=== PATIENT | female | born 1970 | race Caucasian/White ===

== ENCOUNTER 2024-04-12 22:52 | Inpatient (IN) | payer MEDICARE, OTHER, SELFPAY ==
[2024-04-12 15:09] VITALS: BP 104/73
--- NOTE | 2024-04-12 15:23 | ED.GENMED ---
ED Provider Triage
<Marbella Stevens [employer] - Last Filed: 04/12/24 15:29>
-
Patient seen by provider in Triage?: Seen in Triage
53-year-old female with history of Crohn's, bowel resections, ileostomy, CKD stage IV, has had sepsis multiple times, had a PE with COVID last year, DVT left upper arm at same time, she is not anticoagulated.
Admitted [facility] in December 2023 for sepsis, admitted to [place] on 04/03, discharged 04/07 for kidney failure, hypokalemia, hypomagnesemia.
Patient is here today for abdominal pain, poor appetite, nausea and vomiting, last emesis was on the way here today. Has had fevers, states her temperature max was 102 yesterday.
History of Present Illness
<Marbella Stevens NP - Last Filed: 04/12/24 15:29>
General
Chief Complaint: Weakness
Time Seen by Provider: 04/12/24 19:24
<Manoj Sheffield MD - Last Filed: 04/12/24 21:32>
General
Source: patient and records
Exam Limitations: none
Nursing documentation reviewed up to this point in time: agreed with
History of Present Illness
History of Present Illness:
53-year-old female with a past medical history of Crohn's disease status post total colectomy with ileostomy, chronic kidney disease who presents to the emergency department for evaluation of nausea, vomiting, high output from ostomy. Patient
reports that she has been COVID-positive since 04/03/24. She says that her primary symptoms have been and significant GI symptoms�she describes nausea, nasal congestion, headache repeated nonbloody nonbilious emesis and watery output from her
ileostomy. She says that she did initially present [facility] and was admitted for 4 days due to acute kidney injury and hypokalemia; she says that she was discharged 04/07/2024. Since returning home she has continued with vomiting and high
output from ostomy and so she returned here to the emergency room today. She does have some upper abdominal discomfort. She has had fever/chills although not over the past day or 2. She denies any other complaints.
Past History
<Marbella Stevens NP - Last Filed: 04/12/24 15:29>
Past History
ED Past Medical History: Renal failure, Psychiatric (Anxiety, Depression), Other (Crohn's disease, chronic abdominal pain, chronic pain syndrome/narcotic dependent, kidney stones. Colitis, Pancreatitis, Ileostomy,Anemia, ), Other (Small bowel
obstructions, osteopenia, ) and Other (fistula repair late Feb 2015)
ED Past Surgical History: Bowel resection (Colon resection with J. pouch formation 2005, abdominal fistula repair. Ileostomy 08/11)
Social History
Tobacco: Non-smoker
Alcohol: None
Personal: Single
Living: with family
Employment: Not employed
Family History
Family History: Other (Colitis)
Review of Systems
<Manoj Sheffield MD - Last Filed: 04/12/24 21:32>
Review of Systems
All Other Systems: ROS reviewed and negative except as documented in HPI and ROS
Constitutional: Reports fever and chills
EENT: Reports other (Nasal congestion); Denies sore throat
Respiratory: Denies cough
Cardiac: Denies chest pain
ABD/GI: Reports abdominal pain, nausea, vomiting and diarrhea (High output from ostomy)
: Reports dark urine; Denies flank pain
Musculoskeletal: Denies neck pain or back pain
Neurological: Reports headache
Phy Exam
<Manoj Sheffield MD - Last Filed: 04/12/24 21:32>
Physical Exam
Physical Exam:
General: Awake, alert, oriented x3; no acute distress
Head: Normocephalic, atraumatic
Eyes: Conjunctiva normal, sclera anicteric
Throat: Airway intact, very dry mucous membranes
Neck: Trachea midline, supple without meningismus
Lungs: Clear to auscultation bilaterally, no wheezing, rales, rhonchi
Heart: Tachycardia with regular rhythm, no murmurs, gallops, or rubs
Abd: Soft, non distended, minimally tender in the epigastrium; ostomy in place bag filled with essentially bile/green liquid
Neuro: No gross deficits
Skin: Poor skin turgor
Extremities: Warm and well-perfused
Scores
<Manoj Sheffield MD - Last Filed: 04/12/24 21:32>
Heart Failure Risk
Heart Failure Risk Score: Not Applicable
Heart Score for Chest Pain Patients
STEMI patient?: Not applicable
Withdrawal Assessment of Alcohol
Withdrawal Assessment Completed?: Not applicable
Course
<Marbella Stevens NP - Last Filed: 04/12/24 15:29>
Orders/Labs/Results
Orders:
Orders
04/12/24 18:24
Complete Blood Count/With Diff Urgent
04/12/24 18:47
Ondansetron Injectable [Zofran] 4 mg .ROUTE .STK-MED ONE
04/12/24 18:53
Ondansetron Injectable [Zofran] 4 mg IV NOW STA
04/12/24 19:28
CR Chest Portable - 1 View Urgent
Comment:
Reason For Exam: sob, covid+
Reason Study Needs to be Portable: Unable to Transport
04/12/24 19:48
0.9% Sodium Chloride 1000 ml [Nss] 1,000 ml IV BOLUS
Morphine Sulfate 2 mg IV NOW STA
04/12/24 19:56
Comprehensive Metabolic Panel Routine
Lipase Routine
Magnesium Urgent
04/12/24 20:21
Magnesium Sulfate 2 Gram/50 ml [Magnesium Sulfate] 2 gram in 50 ml IV NOW
US Abdomen Complete/Upper Urgent
Comment:
Reason For Exam: abd pain, abnormal LFTs
04/12/24 20:22
0.9% Sodium Chloride 500 ml [Nss] 500 ml IV BOLUS
Abnormal Lab Results
04/12/24 04/12/24
18:24 19:56
WBC 17.8 H 10^3/uL
(4.8-10.8)
RBC 5.61 H 10^6/uL
(4.20-5.40)
Hgb 16.6 H g/dL
(12.0-16.0)
Hct 48.2 H %
(37.0-47.0)
Plt Count 497 H 10^3/uL
(130-400)
MPV 10.9 H fL
(7.4-10.4)
Abs Immat Gran (auto) 0.3 H 10^3/uL
(0-0.05)
Absolute Neuts (auto) 14.9 H 10^3/uL
(1.4-6.5)
Absolute Monos (auto) 1.0 H 10^3/uL
(0.1-0.6)
Immature Gran % 1.7 H %
(0-0.5)
Neutrophils % 83.6 H %
(42.2-75.2)
Lymphocytes % 8.7 L %
(20.5-51.1)
Carbon Dioxide 14 L* mmol/L
(22-30)
BUN 58 H mg/dl
(7-17)
Creatinine 3.3 H mg/dL
(0.6-1.0)
Glucose 116 H mg/dl
(70-99)
Magnesium 1.5 L mg/dl
(1.6-2.3)
Total Bilirubin 1.4 H mg/dl
(0.2-1.3)
AST 65 H U/L
(14-36)
ALT 216 H U/L
(0-35)
Alkaline Phosphatase 152 H U/L
(38-126)
Total Protein 8.7 H g/dl
(6.3-8.2)
Albumin 5.1 H g/dl
(3.5-5.0)
Lipase 594 H U/L
(23-300)
04/12/24 18:24
04/12/24 19:56
Vital Signs
Initial and Last Documented VS:
Initial Vital Signs
Pulse Resp BP Pulse Ox
110 18 104/73 98
04/12/24 15:09 04/12/24 15:09 04/12/24 15:09 04/12/24 15:09
Last Documented Vital Signs
Temp Pulse Resp BP Pulse Ox
36.8 C 114 23 134/97 98
04/12/24 15:32 04/12/24 19:45 04/12/24 19:45 04/12/24 19:42 04/12/24 19:45
<Manoj Sheffield MD - Last Filed: 04/12/24 21:32>
Orders/Labs/Results
Orders:
Orders
04/12/24 18:24
Complete Blood Count/With Diff Urgent
04/12/24 18:47
Ondansetron Injectable [Zofran] 4 mg .ROUTE .STK-MED ONE
04/12/24 18:53
Ondansetron Injectable [Zofran] 4 mg IV NOW STA
04/12/24 19:28
CR Chest Portable - 1 View Urgent
Comment:
Reason For Exam: sob, covid+
Reason Study Needs to be Portable: Unable to Transport
04/12/24 19:48
0.9% Sodium Chloride 1000 ml [Nss] 1,000 ml IV BOLUS
Morphine Sulfate 2 mg IV NOW STA
04/12/24 19:56
Comprehensive Metabolic Panel Routine
Lipase Routine
Magnesium Urgent
04/12/24 20:21
Magnesium Sulfate 2 Gram/50 ml [Magnesium Sulfate] 2 gram in 50 ml IV NOW
US Abdomen Complete/Upper Urgent
Comment:
Reason For Exam: abd pain, abnormal LFTs
04/12/24 20:22
0.9% Sodium Chloride 500 ml [Nss] 500 ml IV BOLUS
Abnormal Lab Results
04/12/24 04/12/24
18:24 19:56
WBC 17.8 H 10^3/uL
(4.8-10.8)
RBC 5.61 H 10^6/uL
(4.20-5.40)
Hgb 16.6 H g/dL
(12.0-16.0)
Hct 48.2 H %
(37.0-47.0)
Plt Count 497 H 10^3/uL
(130-400)
MPV 10.9 H fL
(7.4-10.4)
Abs Immat Gran (auto) 0.3 H 10^3/uL
(0-0.05)
Absolute Neuts (auto) 14.9 H 10^3/uL
(1.4-6.5)
Absolute Monos (auto) 1.0 H 10^3/uL
(0.1-0.6)
Immature Gran % 1.7 H %
(0-0.5)
Neutrophils % 83.6 H %
(42.2-75.2)
Lymphocytes % 8.7 L %
(20.5-51.1)
Carbon Dioxide 14 L* mmol/L
(22-30)
BUN 58 H mg/dl
(7-17)
Creatinine 3.3 H mg/dL
(0.6-1.0)
Glucose 116 H mg/dl
(70-99)
Magnesium 1.5 L mg/dl
(1.6-2.3)
Total Bilirubin 1.4 H mg/dl
(0.2-1.3)
AST 65 H U/L
(14-36)
ALT 216 H U/L
(0-35)
Alkaline Phosphatase 152 H U/L
(38-126)
Total Protein 8.7 H g/dl
(6.3-8.2)
Albumin 5.1 H g/dl
(3.5-5.0)
Lipase 594 H U/L
(23-300)
04/12/24 18:24
04/12/24 19:56
Vital Signs
Initial and Last Documented VS:
Initial Vital Signs
Pulse Resp BP Pulse Ox
110 18 104/73 98
04/12/24 15:09 04/12/24 15:09 04/12/24 15:09 04/12/24 15:09
Last Documented Vital Signs
Temp Pulse Resp BP Pulse Ox
36.8 C 114 23 134/97 98
04/12/24 15:32 04/12/24 19:45 04/12/24 19:45 04/12/24 19:42 04/12/24 19:45
<Manoj Sheffield MD - Last Filed: 04/12/24 21:32>
MDM/Problems Addressed
Differential Diagnosis Includes:
Gastroenteritis, cholelithiasis, Dehydration
MDM/Problems Addressed:
53-year-old female with history as above presents to the ER with persistent nausea, vomiting, diarrhea in the setting of recent COVID infection. She was admitted for dehydration and hypokalemia at [place] recently, returned home and she feels
like she is dehydrated again. She is tachycardic but otherwise normal vitals. She certainly appears dehydrated on physical exam. She had lab work sent in triage including a CBC which appeared hemoconcentrated and a CMP which showed metabolic
acidosis with a bicarb of 14 likely secondary to GI losses, elevated BUN and creatinine with a creatinine of 3.3 from baseline of 1.5. She also abnormal LFTs which could be in the setting of viral infection however will check upper abdominal
ultrasound for completeness. Will provide IV fluids, pain control and antiemetics. Will plan for admission pending imaging.
Upper abdominal ReSound showed cholelithiasis but no signs of cholecystitis and normal CBD. Suspect that her leukocytosis is from hemoconcentration but her abnormal LFTs are from a viral syndrome�hold off on antibiotics for now we will continue
with fluids, monitor labs. Case discussed with hospitalist.
Chronic conditions affecting care:
Crohn's status post colectomy
<Manoj Sheffield MD - Last Filed: 04/12/24 21:32>
*Radiology
Radiology exam reviewed: radiology read reviewed
*Pulse Oximetry
Patient hypoxic: no
*Critical Care Note
Total Time (30-74mins, 75-104mins- exclusive of procedures): Not Applicable
Data Reviewed
Source: patient and records
<Manoj Sheffield MD - Last Filed: 04/12/24 21:32>
Patient Management
Discussion with other providers: Hospitalist (Discussed with hospitalist)
Escalation/DeEscalation of care consider admission/obs:
Admission indicated
ED Attending Note
<Marbella Stevens NP - Last Filed: 04/12/24 15:29>
-
Portions of this chart may have been created with voice recognition software.� Occasional wrong word or��sound alike� substitutions may have occurred due to the inherent limitations of voice recognition software.
Discharge Plan
Departure
Admit to doctor: [facility]
Presentation/result/management discussed w/ accepting MD/DO: Hospitalist
Discharge Problem:
Acute dehydration, PIERCE (acute kidney injury), Transaminitis
Prescriptions:
No Action
lorazepam 2 MG tablet
2 mg PO TIDPRN PRN (Reason: anxiety) Qty: 9 0RF
Fluoxetine HCl
20 mg PO DAILY
Azelastine HCl
2 spray intranasal DAILY PRN (Reason: congestion)
Celecoxib
200 mg PO DAILY
Omeprazole
20 mbq PO DAILY
Methadone
10 mg PO TID
Oxycontin
40 mg PO Q12H
Interventions
Interventions:
*Risk Screen - Suicide Last Done: 04/12/24 15:09
*Neglect/Abuse Screening Last Done: 04/12/24 15:09
ED- Cardiac Assessment Last Done: 04/12/24 19:43
ED- Neurological Assessment Last Done: 04/12/24 19:43
ED- Pulmonary Assessment Last Done: 04/12/24 19:43
Discharge Date and Time
Print Language: ROMANIAN
[2024-04-12 18:33] LABS: % Basophils 0.3 % (0-2); % Eosinophils 0.2 % (0-6); % Immature Granulocytes 1.7 % (0-0.5); % Lymphocytes 8.7 % (20.5-51.1); % Monocytes 5.5 % (1.7-9.3); % Neutrophils 83.6 % (42.2-75.2); Absolute Basophils 0.1 10^3/uL (0-0.2); Absolute Immature Granulocytes 0.3 10^3/uL (0-0.05); Absolute Lymphocytes 1.6 10^3/uL (1.2-3.4); Absolute Neutrophils 14.9 10^3/uL (1.4-6.5); Hematocrit 48.2 % (37.0-47.0); Hemoglobin 16.6 g/dL (12.0-16.0); Mean Corp Hgb Conc. 34.4 g/dL (33.0-37.0); Mean Corpuscular Hgb 29.6 pg (27.0-31.0); Mean Corpuscular Volume 85.9 fL (81.0-99.0); Mean Platelet Volume 10.9 fL (7.4-10.4); Nucleated Red Blood Cells % 0 %; Platelet Count 497 10^3/uL (130-400); Red Blood Cell Count 5.61 10^6/uL (4.20-5.40); Red Cell Dist. Width 13.9 % (11.5-14.5); White Blood Cell Count 17.8 10^3/uL (4.8-10.8)
[2024-04-12] MEDS: ZOFRAN 4 MG IV (18:54)
[2024-04-12 19:42] VITALS: BP 134/97
[2024-04-12 19:47] VITALS: BMI 18.2
[2024-04-12] MEDS: MORPHINE SULFATE 2 MG IV (19:59)
[2024-04-12] MEDS: NSS 1000 IV (20:00)
[2024-04-12 20:17] LABS: ALT (SGPT) 216 U/L (0-35); AST (SGOT) 65 U/L (14-36); Albumin 5.1 g/dl (3.5-5.0); Alkaline Phosphatase 152 U/L (38-126); Blood Urea Nitrogen 58 mg/dl (7-17); Calcium 9.3 mg/dl (8.4-10.2); Carbon Dioxide 14 mmol/L (22-30); Chloride 100 mmol/L (98-107); Estimated Creatinine Clearance 13 ml/min; Glucose 116 mg/dl (70-99); Lipase 594 U/L (23-300); Magnesium 1.5 mg/dl (1.6-2.3); Potassium 4.4 mmol/L (3.5-5.1); Sodium 135 mmol/L (135-145); Total Bilirubin 1.4 mg/dl (0.2-1.3); Total Protein 8.7 g/dl (6.3-8.2); eGFR 16.18
[2024-04-12 20:27] VITALS: BP 122/91
[2024-04-12] MEDS: MAGNESIUM SULFATE 50 IV (21:22)
[2024-04-12] MEDS: NSS 500 IV (21:23)
[2024-04-12 22:54] VITALS: BP 114/81
[2024-04-12 23:00] VITALS: BP 122/76
[2024-04-12 23:17] LABS: Lactic Acid 1.6 mmol/L (0.7-2.0)
[2024-04-13] VITALS (14 sets, daily range): BP systolic 93–121; BP diastolic 59–95; BMI 19.2
--- NOTE | 2024-04-13 00:21 | HPS.HSE ---
Family Physician
-
Family Physician: Sai Metcalf
Chief Complaint
-
Late Entry: Patient seen and examined 04/12/24 @ 10:30 PM.
N/V/D
History of Present Illness
Patient is a 53y F with PMH significant for Crohn's, CKD and chronic pain / opioid dependence who presents to ED complaining of N/V/D. Patient states that her symptoms started around [place] and have been off-and-on since that time. Patient
states that she was hospitalized at [facility] last week and tested positive for COVID-19 at that time. She did not have any specific respiratory complaints, fevers, etc. Patient states that she was discharged to home; however, she continued to feel
poorly. She had poor appetite and continued N/V with non-bloody emesis. She had significant ileostomy output of watery, non-bloody stool - though she does note that her stool is always watery / liquid via her ostomy.
She felt extremely weak and today was unable to get out of bed without difficulty and she presented to the ED for further evaluation.
Medical History
Past Medical History
Past Medical History: Reports Other
Additional Past Medical History:
Crohn's Disease
CKD III
History of DVT / PE
Chronic Opioid Dependence
Anxiety / Depression
Past Surgical History: Reports Other
Additional Past Surgical History:
Proctocolectomy
End-Ileostomy Formation
Social History
Tobacco: Non-smoker
Alcohol: None
Drug: None
Family History
Family History: Other (Strong family history of IBD / colitis.)
Allergies / Home Medications
Allergies reflects when Allergies were last updated in [facility].
Home Medications with original date entered in [facility]
Allergy/Medication List:
Allergies
Allergy/AdvReac Type Severity Reaction Status Date / Time
ketorolac tromethamine Allergy Rash Verified 04/12/24 15:14
[From Toradol]
mesalamine [From Asacol] Allergy DIARRHEA, Verified 04/12/24 15:14
CHILLS,
'INTOLERANT'
Penicillins Allergy Hives Verified 04/12/24 15:14
Sulfa (Sulfonamide Allergy GI UPSET Verified 04/12/24 15:14
Antibiotics)
CANINE Allergy Unknown Uncoded 04/12/24 15:14
FELINE Allergy Unknown Uncoded 04/12/24 15:14
MOLD Allergy Unknown Uncoded 04/12/24 15:14
Home Medications
fluoxetine 40 mg capsule 40 mg PO DAILY 03/28/20
methadone 10 mg tablet 10 mg PO TID 03/28/20
omeprazole 20 mg capsule,delayed release 20 mg PO DAILY 03/28/20
oxycodone 10 mg tablet,crush resistant,extended release 12 hr (OxyContin) 10 mg PO [id number] PRN severe pain 03/28/20
diazepam 5 mg tablet 5 mg PO DAILYPRN PRN anxiety 04/12/24
prochlorperazine maleate 5 mg tablet 5 mg PO TIDPRN PRN nausea 04/12/24
ustekinumab 45 mg/0.5 mL subcutaneous syringe (Stelara) 45 mg SC Q12W 04/12/24
Review of Systems
-
History Source: Patient
A 12 point ROS was completed and negative except as noted: Yes
Constitutional: Reports Fatigue; Denies Fever or Chills
Respiratory: Denies Cough or Trouble Breathing
Cardiac: Denies Chest Pain or Palpitations
Abdomen/GI: Reports Abdominal Pain, Nausea, Vomiting, Diarrhea and Anorexia; Denies Bloody Stools or Black Stools
: Denies Dysuria or Frequency
Musculoskeletal: Denies Joint Pain or Edema
Neurological: Reports Weakness; Denies Dizzy or Headache
Psych: Denies Depression or Anxiety
Physical Exam
Vital Signs
Vital Signs
Temp Pulse Resp BP Pulse Ox
98.2 F 91 13 122/76 98
04/12/24 15:32 04/12/24 23:00 04/12/24 23:00 04/12/24 23:00 04/12/24 20:45
Physical Exam
General: Other (53y F in no distress.)
HEENT: Moist mucous membranes and PERRLA
Respiratory: Clear; No Wheezes, Rales or Rhonchi
Cardiac: S1/S2 and Regular Rhythm; No Murmur
GI: Soft, Non Distended, Normal Bowel Sounds and Other (RLQ ostomy is pink / intact with liquid / watery stool in device. Mild tenderness periostomy without rebound / guarding.)
Musculoskeletal: No Clubbing, No Cyanosis and No Edema
Neuro: AO x 3
Laboratory Results
-
04/12/24 18:24
04/12/24 19:56
Laboratory Results
Lactic Acid 1.6 mmol/L (0.7-2.0) 04/12/24 22:55
Total Bilirubin 1.4 mg/dl (0.2-1.3) H 04/12/24 19:56
AST 65 U/L (14-36) H 04/12/24 19:56
ALT 216 U/L (0-35) H 04/12/24 19:56
Alkaline Phosphatase 152 U/L (38-126) H 04/12/24 19:56
Lipase 594 U/L (23-300) H 04/12/24 19:56
Impression/Plan
-
A/P: Patient is a 53y F with PMH significant for Crohn's disease s/p colectomy and chronic opioid dependence who presents to ED complaining of N/V/D and abdominal pain.
Gastroenteritis
COVID-19 Infection
PIERCE on CKD III
- Admit for further evaluation and treatment.
- Maintain precautions for now though afebrile and without respiratory complaints.
- SCr = 3.3 compared to stated baseline of around 2.
- IVF replacement and monitor electrolytes, etc.
- No role for any COVID-specific therapies at this time.
- GI evaluation for additional recommendations.
Crohn's Disease
- s/p proctocolectomy with permanent ostomy.
- Stool is chronically liquid - though increased volume per patient.
- On Stelara q3 months.
Chronic Opioid Dependence
- In process of weaning from oxycodone with methadone taper.
- Continue current med regimen with no changes.
- Would avoid acute increase in opioids for pain.
- Follow-up as an outpatient with Pain Management / PCP.
DVT Prophylaxis: Subcut Heparin
Code Status: Full
[2024-04-13] MEDS: SODIUM BICARBONATE 1075 MEQ IV ×2 (01:11→09:23)
[2024-04-13] MEDS: OXYCONTIN (CONTROLLED RELEASE) 10 MG PO (02:15)
[2024-04-13 05:42] LABS: ALT (SGPT) 157 U/L (0-35); AST (SGOT) 42 U/L (14-36); Albumin 3.5 g/dl (3.5-5.0); Alkaline Phosphatase 114 U/L (38-126); Blood Urea Nitrogen 51 mg/dl (7-17); Calcium 7.9 mg/dl (8.4-10.2); Carbon Dioxide 16 mmol/L (22-30); Chloride 103 mmol/L (98-107); Estimated Creatinine Clearance 18 ml/min; Glucose 100 mg/dl (70-99); Magnesium 2.3 mg/dl (1.6-2.3); Phosphorus 5.5 mg/dl (2.5-4.5); Potassium 3.5 mmol/L (3.5-5.1); Sodium 133 mmol/L (135-145); Total Bilirubin 1.2 mg/dl (0.2-1.3); Total Protein 6.4 g/dl (6.3-8.2); eGFR 22.57
[2024-04-13 06:20] LABS: Hematocrit 33.5 % (37.0-47.0); Hemoglobin 11.8 g/dL (12.0-16.0); Mean Corp Hgb Conc. 35.2 g/dL (33.0-37.0); Mean Corpuscular Hgb 30.2 pg (27.0-31.0); Mean Corpuscular Volume 85.7 fL (81.0-99.0); Mean Platelet Volume 10.5 fL (7.4-10.4); Platelet Count 272 10^3/uL (130-400); Red Blood Cell Count 3.91 10^6/uL (4.20-5.40); Red Cell Dist. Width 13.9 % (11.5-14.5); White Blood Cell Count 11.5 10^3/uL (4.8-10.8)
[2024-04-13 06:25] LABS: TSH Reflex To Free T4 1.57 uIU/ml (0.47-4.68)
[2024-04-13 07:30] LABS: Erythrocyte Sed Rate 28 mm/hour (0-20)
[2024-04-13] MEDS: HEPARIN 5000 UNITS SC ×2 (08:18→21:32)
[2024-04-13] MEDS: PROZAC 40 MG PO (08:19)
--- NOTE | 2024-04-13 08:52 | CON.GI ---
Addendum entered and electronically signed by Danette Quiñonez DO 04/13/24 10:18:
The patient was seen and examined by me independently in collaboration with the nurse practitioner.
Past medical history/social history/medications/allergies/family history reviewed.
Lab data and imaging data reviewed.
Briefly, Ruby Oakley is a 53 y.o. female w/ pmhx crohns s/p J pouch, ileostomy and vaginal fistula repair, CKD, hx DVT/PE, chronic opioid use, hx of bacteremia 11/2023 and recent COVD infection with continued respiratory issues, abdominal pain
and anorexia who presents with nausea and nonbloody emsis. Extensive crohns history detailed below, previously on humira, changed to Stelara to treat concurrent psoriasis (ordered by dermatology). She has had several different GI providers in the
past managing her IBD, most recently with Dr. Alves in 2021, however, has been lost to follow-up, cancelled appointments in the last 2 years, last seen in the office in 2021. She also reports issues with dysphagia, reportedly had an EGD at [facility]
for food impaction.
She complains of acute on chronic upper abdominal pain, predominantly postprandial. Chronic abdominal pain with wean of her narcotics. She admits to some improvement since arrival, attempting to take some PO, which she has been struggling with since
recent COVID dx. Admits to some rectal bleeding, which is not new. Variable ostomy output, overall, no significant change. No recent scopes. Recent admission to [facility] for 'inflammation around ostomy.'
Initial leukcyotsis of 17.8K on arrival --> 11.5K. Cr. 3.3 --> 2.5 (baseline?).
AST 65 --> 42
ALT 216-->157
Alk phos 152 -->114
Tbili 1.4 --> 1.2
Lipase 594
Unclear how much of her symptoms has to do with her underlying Crohns diagnosis. She recently had COVID and admits this is when many of her symptoms started/chronic sx were exacerbated. LFTs downtrending, unsure if she has baseline elevated due to
fatty liver.
A/P:'
-norovirus pending
-review records from [facility]
-continue optimization of resp. status/complaints
-LFTs improving, if patient does not continue to improve clinically, agree with MRI/MRCP
-Continue OP stelara-emphasized need/importance for outpatient office follow-up, needs scopes. No plans for inpatient endoscopic evaluation.
Original Note:
Consultation
-
Date/Time Consultation Requested: 04/13/24 0030
Date/Time Consultation Performed: 04/13/24 0850
Requesting Provider: Felipe Cespedes DO
Performing Provider: BOGDAN Leyva, Faiza Quiñonez DO
Reason for Consultation: diarrhea
Medical History
Chief Complaint / HPI
History of Present Illness:
Pt is a 53 yo with hx crohn's with prior J pouch, ileostomy and vaginal fistula repair, asthma, depression/anxiety, CKD stage II, DVT/PE, chronic opioid use with wean, bacteremia 11/2023 unclear etiology with recent covid with continued resp issue
and upper abdominal pain with decreased appetite and nausea and small amounts of vomiting. In review of OP chart patient was diagnosed with crohns around age 25 with evaluation with and then Dr. Hidalgo at [facility]. She
was treated wqith Prednisone and 6 -MP and then Remicade. Around age 31 she had partial colectomy with J pouch. She had complications post surgery with obstruction and diarrhea with Humira therapy and then had second surgery in 2014. She
initially had completion colectomy with creation of an ileostomy. She then had a second surgery shortly thereafter to resect the residual rectum and oversew the anus. She has been living with an ileostomy since then. She had a vaginal fistula
diagnosed around 2018 that again required surgery at [facility]. She has remained on Humira over the years since her initial surgery but relates she changed to Stelara about 1-2 years ago with noted psoriasis and being ordered by
dermatology. She was following with Dr. Josue then changed to Dr. Alves in 2021. She had several phone encounters and canceled appt since that time as states she was doing well. Last [place] follow was about 5 years ago.
Per patient she had chronic GERD on Omeprazole. She has some chronic upper abdominal pain mostly post prandial with current wean of chronic narcotics. She does complaint of worsening upper abdominal pain /10 prior to admission now 4-5.
She is feeling improving and trying to eat. + wt loss since recent onset of covid symptoms. She has variable amount of stool and empties ostomy several times per day. She also admits to some rectal bleeding that is ongoing. She has not not rectal
or ileostomy scopes in years.
She also report recent CT at [facility] with ? inflammation around stoma.
������ 11/08/02 COLON (Quinn)- Erythema SC/DC. Loss of haustra DC/SC. Two patchy areas erythema cecum.
�������06/02/98 FLEX SIG (Katzka)- Mild edema diffusely with some areas of normal mucosa. Stool @30cm.
�������03/30/96 COLON (Shick/Deren)- Aphthoid lesion (not ulcerations) of questionable significance visualized in descending colon.
Past Medical History
Past Medical History: Asthma, Renal Failure (CKD), Psychiatric (anxiety/depression) and Other (crohn's disease with prior proctocolectomy/ileostomy, psoriasis, DVT/PE, chronic opioid use with wean follows with pain management, bacteremia in nov
2023 [facility] - unclear etiology, fatty live per imaging )
Past Surgical History: Bowel Resection (total 7 surgeries at [facility], Jpouch, revision, ileostomy, vaginal fistula with repair)
Social History
Tobacco: Former Smoker (only in college)
Alcohol: None
Drug: None
Living: Alone
Employment: Employed
Family History
Family History: Other (father with colitis, 2 grandfathers with colon CA, uncle with colon CA, 2 cousins with crohns)
Allergies / Home Medications
Allergy/AdvReac Type Severity Reaction Status Date / Time
ketorolac tromethamine Allergy Rash Verified 04/12/24 15:14
[From Toradol]
mesalamine [From Asacol] Allergy DIARRHEA, Verified 04/12/24 15:14
CHILLS,
'INTOLERANT'
Penicillins Allergy Hives Verified 04/12/24 15:14
Sulfa (Sulfonamide Allergy GI UPSET Verified 04/12/24 15:14
Antibiotics)
CANINE Allergy Unknown Uncoded 04/12/24 15:14
FELINE Allergy Unknown Uncoded 04/12/24 15:14
MOLD Allergy Unknown Uncoded 04/12/24 15:14
�Medication �Instructions �Recorded
fluoxetine 40 mg capsule 40 mg PO DAILY 03/28/20
methadone 10 mg tablet 10 mg PO TID 03/28/20
omeprazole 20 mg capsule,delayed 20 mg PO DAILY 03/28/20
release
oxycodone 10 mg tablet,crush 10 mg PO [id number] PRN severe pain 03/28/20
resistant,extended release 12 hr
(OxyContin)
diazepam 5 mg tablet 5 mg PO DAILYPRN PRN anxiety 04/12/24
prochlorperazine maleate 5 mg 5 mg PO TIDPRN PRN nausea 04/12/24
tablet
ustekinumab 45 mg/0.5 mL 45 mg SC Q12W 04/12/24
subcutaneous syringe (Stelara)
Review of Systems
-
History Source: Patient
Constitutional: Reports Weight Loss
EENT: Reports No Symptoms
Respiratory: Reports Cough and Trouble Breathing
Cardiac: Reports No Symptoms
Abdomen/GI: Reports Abdominal Pain, Nausea, Vomiting, Diarrhea (chronic with ileostomy) and Bloody Stools
: Reports No Symptoms
Musculoskeletal: Reports No Symptoms
Skin: Reports No Symptoms
Neurological: Reports Weakness
Endocrine: Reports No Symptoms
Hematologic/Lymphatic: Reports No Symptoms
Vital Signs
Temp Pulse Resp BP Pulse Ox
97.6 F 81 14 93/74 99
04/13/24 03:06 04/13/24 05:00 04/13/24 05:00 04/13/24 07:00 04/13/24 07:00
Physical Exam
Exam
General: Other (thin appearing )
HEENT: Normocephalic and Anicteric
Respiratory: Other (cough during evaluation)
Cardiac: Regular Rhythm
GI: Soft, Non Distended and Tender (mild upper abdominal pain, ileostomy with yellow/green liquid output )
Musculoskeletal: No Clubbing and No Cyanosis
Skin: Warm and Dry
Neuro: Awake, Alert and AO x 3
Psych: Calm
Results
WBC 11.5 10^3/uL (4.8-10.8) H 04/13/24 05:08
Hgb 11.8 g/dL (12.0-16.0) L D 04/13/24 05:08
Hct 33.5 % (37.0-47.0) L 04/13/24 05:08
MCV 85.7 fL (81.0-99.0) 04/13/24 05:08
Plt Count 272 10^3/uL (130-400) D 04/13/24 05:08
Absolute Neuts (auto) 14.9 10^3/uL (1.4-6.5) H 04/12/24 18:24
Sodium 133 mmol/L (135-145) L 04/13/24 05:08
Potassium 3.5 mmol/L (3.5-5.1) 04/13/24 05:08
Chloride 103 mmol/L (98-107) 04/13/24 05:08
Carbon Dioxide 16 mmol/L (22-30) L 04/13/24 05:08
BUN 51 mg/dl (7-17) H 04/13/24 05:08
Creatinine 2.5 mg/dL (0.6-1.0) H 04/13/24 05:08
Calcium 7.9 mg/dl (8.4-10.2) L 04/13/24 05:08
Total Bilirubin 1.2 mg/dl (0.2-1.3) 04/13/24 05:08
AST 42 U/L (14-36) H 04/13/24 05:08
ALT 157 U/L (0-35) H 04/13/24 05:08
Alkaline Phosphatase 114 U/L (38-126) 04/13/24 05:08
Lipase 594 U/L (23-300) H 04/12/24 19:56
Diagnostic Image Results:
09/2022 CT a/p without contrast
Small bilateral nonobstructing renal calculi.
Virtually completely empty and unopacified urinary bladder with at least relative diffuse wall thickening. Cystitis cannot be excluded. Suggest correlation with urinalysis.
Evaluation for renal infection bilaterally markedly limited without intravenous contrast.
Apparent prior colectomy with right lower quadrant ileostomy again seen. No findings to suggest small bowel obstruction.
04/12/24 CXR No acute cardiopulmonary process.
04/12/24 US abdomen
Cholelithiasis. No gallbladder wall thickening or biliary tract dilatation. Negative sonographic England's sign.
Findings suggesting diffuse fatty liver.
Prior GI Procedures:
Prior EGD at [facility] with food impaction
���� 11/08/02 COLON (Quinn)- Erythema SC/DC. Loss of haustra DC/SC. Two patchy areas erythema cecum.
�������06/02/98 FLEX SIG (Katzka)- Mild edema diffusely with some areas of normal mucosa. Stool @30cm.
�������03/30/96 COLON (Shick/Deren)- Aphthoid lesion (not ulcerations) of questionable significance visualized in descending colon.
Assessment / Plan
-
Pt is a 53 yo with hx crohn's with prior J pouch, ileostomy and vaginal fistula repair, asthma, depression/anxiety, CKD stage II, DVT/PE, chronic opioid use with wean, bacteremia 11/2023 unclear etiology with recent covid with continued resp issue
and upper abdominal pain with decreased appetite and nausea and small amounts of vomiting. In review of OP chart patient was diagnosed with crohns around age 25 with evaluation with and then Dr. Hidalgo at [facility]. She
was treated wqith Prednisone and 6 -MP and then Remicade. Around age 31 she had partial colectomy with J pouch. She had complications post surgery with obstruction and diarrhea with Humira therapy and then had second surgery in 2014. She
initially had completion colectomy with creation of an ileostomy. She then had a second surgery shortly thereafter to resect the residual rectum and oversew the anus. She has been living with an ileostomy since then. She had a vaginal fistula
diagnosed around 2018 that again required surgery at [facility]. She has remained on Humira over the years since her initial surgery but relates she changed to Stelara about 1-2 years ago with noted psoriasis and being ordered by
dermatology. She was following with Dr. Josue then changed to Dr. Alves in 2021. She had several phone encounters and canceled appt since that time as states she was doing well. Last [place] follow was about 5 years ago.
Per patient she had chronic GERD on Omeprazole. She has some chronic upper abdominal pain mostly post prandial with current wean of chronic narcotics. She does complaint of worsening upper abdominal pain 10/10 prior to admission now 4-5/10.
She is feeling improving and trying to eat. + wt loss since recent onset of covid symptoms. She has variable amount of stool and empties ostomy several times per day. She also admits to some rectal bleeding that is ongoing. She has not not rectal
or ileostomy scopes in years.
She also report recent CT at [facility] with ? inflammation around stoma
������ 11/08/02 COLON (Quinn)- Erythema SC/DC. Loss of haustra DC/SC. Two patchy areas erythema cecum.
�������06/02/98 FLEX SIG (Katzka)- Mild edema diffusely with some areas of normal mucosa. Stool @30cm.
�������12/31/96 COLON (Shick/Deren)- Aphthoid lesion (not ulcerations) of questionable significance visualized in descending colon.
04/12/24 US abdomen
Cholelithiasis. No gallbladder wall thickening or biliary tract dilatation. Negative sonographic England's sign.
Findings suggesting diffuse fatty liver.
-abdominal pain/decreased appetite
-recent covid with continued cough symptoms
-hx complicated crohns with prior J pouch, ileostomy, repair of vaginal fistula on chronic Stelara ordered by dermatology
-occasional rectal bleeding
-recent admission to [facility] with ' inflammation around ostomy'
-increased LFT's
-leukocytosis
-mild anemia
-hyponatremia
-CKD
other med problems:
-Asthma
-depression/anxiety
-DVT/PE
-chronic opioid use with weaning on methadone
-bacteremia 11/2023- [facility]
-hx prior food impaction
-cholelithiasis
-fatty liver per imaging
PLAN:
etiology of abdominal pain unclear related to colitis(? recent inflammation around stoma per pt at [facility]), biliary with mild LFT elevation, muscular with recent coughing with covid vs other -- now some improvement
monitor with diet advancement
cont medical management with recent resp illness and continued complaints of shortness of breath
reviewed with need office follow up to review need for f/u scopes with complaints of rectal bleeding
US as noted -- if continued pain consider further imaging with MRI with mild LFT elevation but also some elevation in 2022 may be fatty liver related
cont to trend LFT's
obtain recent CT from [facility] with ? inflammation around stoma
norovirus pending to be sent
continued OP Stelara last dose prior to [facility] admission in March
-
-
Thank you for consultation and allowing me to participate in the patient's care. Please call the invertebrate paleontologist GI physician during the after hours with any questions or concerns.
[2024-04-13] MEDS: DOLOPHINE 10 MG PO ×3 (10:33→21:32)
[2024-04-13 12:06] LABS: COVID-19 Antigen Negative (Negative)
--- NOTE | 2024-04-13 13:30 | WOUNDNOTE ---
NEVIN RN NOTE: Asked to see patient for ostomy needs, Ileostomy from 2013. Reviewed current practice of care and supplies used with patient. Stoma pink, budded and functioning for kamara liquid stool. Patient reports she uses Pre cut one piece convex
Rod appliance with Tom seal, barrier strips and belt. Plenty of supplies at bedside. Patient states if she does get peristomal skin irritation she has kenalog spray and powder if needed. Support and encouragement given, no further ostomy
needs. Patient capable of changing own appliance, will sign off.
--- NOTE | 2024-04-13 14:47 | W.PN.HOSP.TC ---
Today's Communication/Plan
-
monitor lfts for possible mri/mrcp
covid, flu, norovirus neg - symptoms may be related to opiate withdrawal
Assessment / Plan
Assessment / Plan
Physical Exam
General: Other (53y F in no distress.)
HEENT: Moist mucous membranes and PERRLA
Respiratory: Clear; No Wheezes, Rales or Rhonchi
Cardiac: S1/S2 and Regular Rhythm; No Murmur
GI: Soft, Non Distended, Normal Bowel Sounds and Other (RLQ ostomy is pink / intact with liquid / watery stool in device. Mild tenderness periostomy without rebound / guarding.)
Musculoskeletal: No Clubbing, No Cyanosis and No Edema
Neuro: AO x 3
A/P: Patient is a 53y F with PMH significant for Crohn's disease s/p colectomy and chronic opioid dependence who presents to ED complaining of N/V/D and abdominal pain.
Gastroenteritis
?COVID-19 Infection
- Admit for further evaluation and treatment.
- Maintain precautions for now though afebrile and without respiratory complaints.
- - IVF replacement and monitor electrolytes, etc.
- No role for any COVID-specific therapies at this time.
- GI evaluation for additional recommendations.
-f/u stool for norovirus negative
-- at this time no sig output - possible related withdrawal symptom
PIERCE on CKD
Metabolic Acidosis
-baseline appx at 2.5
-resolved
-may benefit from bicarb sup prior to dc
Crohn's Disease
- s/p proctocolectomy with permanent ostomy.
- Stool is chronically liquid - though increased volume per patient.
- On Stelara q3 months.
#Hyponatremia
mild
ctm
Transaminitis
-mild
-improving
-no ruq pain - ruq sono - fatty liver
- Cholelithiasis. No gallbladder wall thickening or biliary tract dilatation. Negative sonographic England's sign.
-if does not improve can perform mrcp/mri
Chronic Opioid Dependence
- In process of weaning from oxycodone with methadone taper.
- Continue current med regimen with no changes.
- Would avoid acute increase in opioids for pain.
- Follow-up as an outpatient with Pain Management / PCP.
DVT Prophylaxis: Subcut Heparin
Code Status: Full
Anticipated Discharge: 24 - 48 hours
Subjective/Interval History
-
Date of Service: April 13, 2024
nonspecific symptoms
Objective Data
-
Labs:
Laboratory Results
04/13/24
05:08
WBC 11.5 H
Hgb 11.8 L D
Hct 33.5 L
Plt Count 272 D
Sodium 133 L
Potassium 3.5
Chloride 103
Carbon Dioxide 16 L
BUN 51 H
Creatinine 2.5 H
Glucose 100 H
Calcium 7.9 L
Total Bilirubin 1.2
AST 42 H
ALT 157 H
Alkaline Phosphatase 114
Vital Signs:
Vital Signs
Temp Pulse Resp BP Pulse Ox
97.6 F 81 14 93/74 99
04/13/24 03:06 04/13/24 05:00 04/13/24 05:00 04/13/24 07:00 04/13/24 07:00
Review of Systems
-
History Source: Patient
All other systems: Not reviewed unless documented
Data Reviewed
-
Labs: Labs Reviewed by me
[2024-04-13] MEDS: LR 1000 IV (16:57)
--- NOTE | 2024-04-13 19:26 | EDRN ---
LR Infusion finished at this time. Patient currently lying in bed eating dinner. Patient offers no complaints. Patient also noted to be watching TV. Informed patient that she will be moved to a room out of the ED shortly.
--- NOTE | 2024-04-13 20:00 | PTCARENOTE ---
Pt arrived to room 414-01. Pt ambulated from stretcher to bed. Pt AAOx3, VSS. Pt no c/o pain, n/v. Pt oriented to room call becerra placed within reach.
[2024-04-14 03:43] VITALS: BP 101/61; BP 91/58; BP 97/62; PULSE 82; PULSE 84; PULSE 86
[2024-04-14 06:00] VITALS: BMI 18.9
[2024-04-14 07:06] VITALS: BP 84/54; BP 91/55; BP 95/58; PULSE 79; PULSE 83; PULSE 84
[2024-04-14 07:41] LABS: Hematocrit 30.1 % (37.0-47.0); Hemoglobin 10.2 g/dL (12.0-16.0); Mean Corp Hgb Conc. 33.9 g/dL (33.0-37.0); Mean Corpuscular Hgb 29.8 pg (27.0-31.0); Mean Platelet Volume 11.1 fL (7.4-10.4); Platelet Count 227 10^3/uL (130-400); Red Blood Cell Count 3.42 10^6/uL (4.20-5.40); White Blood Cell Count 5.2 10^3/uL (4.8-10.8)
[2024-04-14 08:23] LABS: ALT (SGPT) 108 U/L (0-35); AST (SGOT) 33 U/L (14-36); Albumin 3.4 g/dl (3.5-5.0); Alkaline Phosphatase 98 U/L (38-126); Blood Urea Nitrogen 45 mg/dl (7-17); Calcium 7.8 mg/dl (8.4-10.2); Carbon Dioxide 24 mmol/L (22-30); Chloride 101 mmol/L (98-107); Estimated Creatinine Clearance 21 ml/min; Glucose 81 mg/dl (70-99); Potassium 3.1 mmol/L (3.5-5.1); Sodium 135 mmol/L (135-145); Total Bilirubin 0.6 mg/dl (0.2-1.3); Total Protein 5.9 g/dl (6.3-8.2); eGFR 26.32
[2024-04-14] MEDS: KCL ELIXIR 40 MEQ PO (09:38)
[2024-04-14] MEDS: LR 1000 IV (09:38)
[2024-04-14] MEDS: PROZAC 40 MG PO (09:39)
[2024-04-14] MEDS: DOLOPHINE 10 MG PO (09:39)
[2024-04-14] MEDS: HEPARIN 5000 UNITS SC (09:39)
--- NOTE | 2024-04-14 10:19 | W.PN.GI.CBS2 ---
Addendum entered and electronically signed by Danette Quiñonez DO 04/14/24 11:27:
The patient was seen and examined by me independently in collaboration with the nurse practitioner.
Past medical history/social history/medications/allergies/family history reviewed.
Lab data and imaging data reviewed.
Patient seen in follow-up, reports improvement in both URI symptoms and abdominal pain. She is tolerating a diet. She typically does not eat large meals, mostly small frequent meals, grazes. Feels much improved after getting some IV fluids.
Leukocytosis resolved. Norovirus and influenza negative. BCx negative. LFts improving.
Okay for d/c from GI perspective. She needs to reestablish care with GI, will arrange for OP follow-up with Dr. Alves for management of her Crohns disease.
GI will sign off, please call with questions.
Original Note:
Today's Communication / Plan
-
etiology of abdominal pain unclear related to colitis(? recent inflammation around stoma per pt at [facility]), biliary with mild LFT elevation, muscular with recent coughing with covid vs other - abdominal pain now resolving
cont low fat diet
LFT''s improving - hold futher imaging may be fatty liver, vs recent covid vs other
need office follow up to review need for f/u scopes with complaints of rectal bleeding-- message sent to office to arrange OP follow up
awaiting records from [facility] - no records received as of now
norovirus neg
continued OP Stelara last dose prior to [facility] admission in March
K repleted and for fluid bolus per pateint for discharge later today
stable from GI for discharge all questions ansswered
Assessment / Plan
-
Pt is a 53 yo with hx crohn's with prior J pouch, ileostomy and vaginal fistula repair, asthma, depression/anxiety, CKD stage II, DVT/PE, chronic opioid use with wean, bacteremia 11/2023 unclear etiology with recent covid with continued resp issue
and upper abdominal pain with decreased appetite and nausea and small amounts of vomiting. In review of OP chart patient was diagnosed with crohns around age 25 with evaluation with and then Dr. Hidalgo at [facility]. She
was treated wqith Prednisone and 6 -MP and then Remicade. Around age 31 she had partial colectomy with J pouch. She had complications post surgery with obstruction and diarrhea with Humira therapy and then had second surgery in 2014. She
initially had completion colectomy with creation of an ileostomy. She then had a second surgery shortly thereafter to resect the residual rectum and oversew the anus. She has been living with an ileostomy since then. She had a vaginal fistula
diagnosed around 2018 that again required surgery at [facility]. She has remained on Humira over the years since her initial surgery but relates she changed to Stelara about 1-2 years ago with noted psoriasis and being ordered by
dermatology. She was following with Dr. Josue then changed to Dr. Alves in 2021. She had several phone encounters and canceled appt since that time as states she was doing well. Last [place] follow was about 5 years ago.
Per patient she had chronic GERD on Omeprazole. She has some chronic upper abdominal pain mostly post prandial with current wean of chronic narcotics. She does complaint of worsening upper abdominal pain 10/10 prior to admission now 4-5/10.
She is feeling improving and trying to eat. + wt loss since recent onset of covid symptoms. She has variable amount of stool and empties ostomy several times per day. She also admits to some rectal bleeding that is ongoing. She has not not rectal
or ileostomy scopes in years.
She also report recent CT at [facility] with ? inflammation around stoma
������ 11/08/02 COLON ([facility])- Erythema SC/DC. Loss of haustra DC/SC. Two patchy areas erythema cecum.
�������06/02/98 FLEX SIG ([place])- Mild edema diffusely with some areas of normal mucosa. Stool @30cm.
�������03/30/96 COLON (Shick/Derelance)- Aphthoid lesion (not ulcerations) of questionable significance visualized in descending colon.
04/12/24 US abdomen
Cholelithiasis. No gallbladder wall thickening or biliary tract dilatation. Negative sonographic England's sign.
Findings suggesting diffuse fatty liver.
-abdominal pain/decreased appetite
-recent covid with continued cough symptoms
-hx complicated crohns with prior J pouch, ileostomy, repair of vaginal fistula on chronic Stelara ordered by dermatology
-occasional rectal bleeding
-recent admission to [facility] with ' inflammation around ostomy'
-increased LFT's
-leukocytosis
-mild anemia
-hyponatremia
-CKD
other med problems:
-Asthma
-depression/anxiety
-DVT/PE
-chronic opioid use with weaning on methadone
-bacteremia 11/2023- [facility]
-hx prior food impaction
-cholelithiasis
-fatty liver per imaging
PLAN:
etiology of abdominal pain unclear related to colitis(? recent inflammation around stoma per pt at [facility]), biliary with mild LFT elevation, muscular with recent coughing with covid vs other - abdominal pain now resolving
cont low fat diet
LFT''s improving - hold futher imaging may be fatty liver, vs recent covid vs other
need office follow up to review need for f/u scopes with complaints of rectal bleeding-- message sent to office to arrange OP follow up
awaiting records from [facility] - no records received as of now
norovirus neg
continued OP Stelara last dose prior to [facility] admission in March
K repleted and for fluid bolus per pateint for discharge later today
stable from GI for discharge all questions ansswered
Subjective
Subjective
Date of Service: April 14, 2024
liquid drainage in ostomy but has not been using Gel pack, feeling much better pt states she is for discharge today
Objective
Data Reviewed
Laboratory Data:
Laboratory Results
04/14/24 07:17
04/14/24 07:17
Laboratory Results
Phosphorus 5.5 mg/dl (2.5-4.5) H 04/13/24 05:08
Magnesium 2.3 mg/dl (1.6-2.3) 04/13/24 05:08
Total Bilirubin 0.6 mg/dl (0.2-1.3) 04/14/24 07:17
AST 33 U/L (14-36) 04/14/24 07:17
ALT 108 U/L (0-35) H 04/14/24 07:17
Alkaline Phosphatase 98 U/L (38-126) 04/14/24 07:17
Lipase 594 U/L (23-300) H 04/12/24 19:56
Vital Signs and I&O:
Vital Signs
Temp Pulse Resp BP Pulse Ox
98.1 F 90 18 104/73 96
04/14/24 07:06 04/13/24 23:47 04/14/24 07:06 04/13/24 23:47 04/14/24 07:06
I&O
04/13/24 04/14/24 04/15/24
06:59 06:59 06:59
Intake Total 480 / 480
Balance 480 / 480
Physical Exam
Physical Exam
HEENT: Anicteric and Moist mucous membranes
Cardiology: Normal Sinus Rhythm
Pulmonary: Clear
GI: Soft, Non Distended, Tender (chronic mild ) and Other (ileostomy with liquid stool)
Extremities: No Edema
Neuro: Non Focal
--- NOTE | 2024-04-14 11:12 | CM ---
Addendum entered by Norma Perdomo 04/14/24 12:25:
D/c home today
IMM reviewed, copy placed in chart
Per pt, she drove herself to hospital and will drive herself home
Plan: Home; no needs
Original Note:
Pt seen bedside. Initial assessment completed. Admitted for N/V/D.
Pt reports that she rents a room in a [address] to enter the home. Pt states she has her own bedroom and bathroom and shares the kitchen.
Pt states she is independent w/ ambulation. No DME identified for daily functioning.
Pt denies SNF hx, has participated in OP therapy. Pt states she did have VN in the past for wound care through [facility]
Pt reports she is employed at [employer]
Address, point of contact and insurance verified
PCP: Dr. Metcalf
Pharmacy: [facility]
Pt reports that she met w/ hospitalist who stated she is able to d/c today after she receives IV fluids
Plan: Home; no needs
--- NOTE | 2024-04-14 12:16 | W.PN.HOSP.TC ---
Addendum entered and electronically signed by Dangelo Norman MD 04/15/24 16:30:
[id number]
Original Note:
Today's Communication/Plan
-
clear for dc
f/u pcp, gi outpt
f/u cbc, cmp outpt
Assessment / Plan
Assessment / Plan
Physical Exam
General: Other (53y F in no distress.)
HEENT: Moist mucous membranes and PERRLA
Respiratory: Clear; No Wheezes, Rales or Rhonchi
Cardiac: S1/S2 and Regular Rhythm; No Murmur
GI: Soft, Non Distended, Normal Bowel Sounds and Other (RLQ ostomy is pink / intact with liquid / watery stool in device. Mild tenderness periostomy without rebound / guarding.)
Musculoskeletal: No Clubbing, No Cyanosis and No Edema
Neuro: AO x 3
A/P: Patient is a 53y F with PMH significant for Crohn's disease s/p colectomy and chronic opioid dependence who presents to ED complaining of N/V/D and abdominal pain.
Gastroenteritis
?COVID-19 Infection
- Admit for further evaluation and treatment.
- Maintain precautions for now though afebrile and without respiratory complaints.
- - IVF replacement and monitor electrolytes, etc.
- No role for any COVID-specific therapies at this time.
- GI evaluation for additional recommendations.
-f/u stool for norovirus negative
-- at this time no sig output - possible related withdrawal symptom
�Symptoms resolved
PIERCE on CKD
Metabolic Acidosis
-baseline appx at 2.5
-resolved
�Resolved
� Follow-up PCP outpatient
#Hypokalemia
Monitor and replete
Crohn's Disease
- s/p proctocolectomy with permanent ostomy.
- Stool is chronically liquid - though increased volume per patient.
- On Stelara q3 months.
�Follow-up GI outpatient
#Hyponatremia
mild
ctm
�Resolved
Transaminitis
-mild
-improving
-no ruq pain - ruq sono - fatty liver
- Cholelithiasis. No gallbladder wall thickening or biliary tract dilatation. Negative sonographic [place]'s sign.
-if does not improve can perform mrcp/mri�defer outpatient with follow-up
Chronic Opioid Dependence
- In process of weaning from oxycodone with methadone taper.
- Continue current med regimen with no changes.
- Would avoid acute increase in opioids for pain.
- Follow-up as an outpatient with Pain Management / PCP.
DVT Prophylaxis: Subcut Heparin
Code Status: Full
More than 30 minutes spent in discharge including
Final examination of the patient
Summarizing hospital stay
Instructions for continuing care to all relevant caregivers
Preparation of discharge records, prescriptions, and referral forms
Total time spent (36 in minutes):
Anticipated Discharge: Today
Subjective/Interval History
-
Date of Service: April 14, 2024
Patient symptoms resolved
Objective Data
-
Labs:
Laboratory Results
04/14/24
07:17
WBC 5.2
Hgb 10.2 L
Hct 30.1 L
Plt Count 227
Sodium 135
Potassium 3.1 L
Chloride 101
Carbon Dioxide 24
BUN 45 H
Creatinine 2.2 H
Glucose 81
Calcium 7.8 L
Total Bilirubin 0.6
AST 33
ALT 108 H
Alkaline Phosphatase 98
Vital Signs:
Vital Signs
Temp Pulse Resp BP Pulse Ox
98.1 F 90 18 104/73 96
04/14/24 07:06 04/13/24 23:47 04/14/24 07:06 04/13/24 23:47 04/14/24 07:06
I&O
04/13/24 04/14/24 04/15/24
06:59 06:59 06:59
Intake Total 480 / 480
Balance 480 / 480
Review of Systems
-
History Source: Patient
All other systems: Not reviewed unless documented
Data Reviewed
-
Labs: Labs Reviewed by me
--- NOTE | 2024-04-14 12:19 | W.DS.TRANS ---
DC Summary - Temperature Inspector
-
Discharge Instructions:
Discharge Diagnosis/Procedures Gastroenteritis
?COVID-19 Infection
PIERCE on CKD
Diet Low Residue
Activity As tolerated
Blood Work cbc and cmp in 3-5 days with pcp
Instructions:
Stand-Alone Forms:
Changes to Home Medications: No
Discharge Medications:
DC Medications w/original date entered in [employer]
fluoxetine 40 mg capsule 40 mg PO DAILY 03/28/20
methadone 10 mg tablet 10 mg PO TID 03/28/20
omeprazole 20 mg capsule,delayed release 20 mg PO DAILY 03/28/20
oxycodone 10 mg tablet,crush resistant,extended release 12 hr (OxyContin) 10 mg PO [id number] PRN severe pain 03/28/20
diazepam 5 mg tablet 5 mg PO DAILYPRN PRN anxiety 04/12/24
prochlorperazine maleate 5 mg tablet 5 mg PO TIDPRN PRN nausea 04/12/24
ustekinumab 45 mg/0.5 mL subcutaneous syringe (Stelara) 45 mg SC Q12W 04/12/24
Home Medication Changes
na
Pending Results: No
[2024-04-14 14:39] VITALS: BP 94/59
== END 2024-04-14 15:39 | disposition home or self-care (01) | DRG 682 ==
LOC: 4 WEST ACU 22:52
PROVIDERS: Emergency Medicine; Nurse Practitioner Adult Health; ADMITTING PHYSICIAN Hospitalist; ATTENDING PHYSICIAN Internal Medicine; EMERGENCY PHYSICIAN Emergency Medicine; FAMILY PHYSICIAN Internal Medicine; OTHER PHYSICIAN Internal Medicine
DX: N17.9 Acute kidney failure, unspecified (principal); U07.1 COVID-19; E87.1 Hypo-osmolality and hyponatremia; E87.20 Acidosis, unspecified; F11.20 Opioid dependence, uncomplicated; K50.90 Crohn's disease, unspecified, without complications; K52.9 Noninfective gastroenteritis and colitis, unspecified; N18.30 Chronic kidney disease, stage 3 unspecified; D63.1 Anemia in chronic kidney disease; K21.9 Gastro-esophageal reflux disease without esophagitis; J45.909 Unspecified asthma, uncomplicated; F32.A Depression, unspecified; F41.9 Anxiety disorder, unspecified; E86.0 Dehydration; E87.6 Hypokalemia; G89.4 Chronic pain syndrome; Z93.2 Ileostomy status; Z90.49 Acquired absence of other specified parts of digestive tract; Z88.2 Allergy status to sulfonamides; Z88.0 Allergy status to penicillin; Z87.891 Personal history of nicotine dependence; Z86.718 Personal history of other venous thrombosis and embolism; Z86.16 Personal history of COVID-19; Z79.899 Other long term (current) drug therapy; Z86.711 Personal history of pulmonary embolism
CPT/HCPCS: 71045; 76700; 80053; 82248; 83605; 83690; 83735; 84100; 84443; 85025; 85027; 85652; 87040; 87502; 87798; 87811; 96361; 96365; 96366; 96375; 99285; J7030

== ENCOUNTER → 2025-01-12 12:51 | Outpatient (REF) | payer MEDICARE, OTHER, SELFPAY ==
[2025-01-12 13:51] LABS: Hematocrit 35.3 % (37.0-47.0); Hemoglobin 11.1 g/dL (12.0-16.0); Mean Corp Hgb Conc. 31.4 g/dL (33.0-37.0); Mean Corpuscular Volume 85.5 fL (81.0-99.0); Nucleated Red Blood Cells % 0 %; Platelet Count 196 10^3/uL (130-400); Red Cell Dist. Width 14.6 % (11.5-14.5)
[2025-01-12 14:08] LABS: ALT (SGPT) 17 U/L (0-35); AST (SGOT) 21 U/L (14-36); Albumin 4.4 g/dl (3.5-5.0); Alkaline Phosphatase 128 U/L (38-126); Blood Urea Nitrogen 21 mg/dl (7-17); Calcium 9.2 mg/dl (8.4-10.2); Carbon Dioxide 19 mmol/L (22-30); Chloride 109 mmol/L (98-107); Glucose 117 mg/dl (70-99); Potassium 3.8 mmol/L (3.5-5.1); Sodium 140 mmol/L (135-145); Total Protein 7.8 g/dl (6.3-8.2); eGFR 31.18
== END ==
LOC: REG 12:51
PROVIDERS: ATTENDING PHYSICIAN Nurse Practitioner Primary Care; FAMILY PHYSICIAN Internal Medicine; OTHER PHYSICIAN Dermatology
DX: Z79.899 Other long term (current) drug therapy (principal)
CPT/HCPCS: 36415; 80053; 82565; 85025